=== PATIENT | female | born 1965 | race Caucasian/White ===

== ENCOUNTER 2021-06-05 09:35 | Emergency (ER) | payer BC ==
[~2021-06-05 09:35] MED LIST: ALENDRONATE SOD70 MG PO; ALL DAY ALLERGY10 MG PO; ASPIR 8181 MG PO; B12 PO; BUTRANS1 EAC1 TD; CETIRIZINE HCL10 MG PO; COL-RITE250 MG PO; CYCLOBENZAPRINE10 MG PO; CYMBALTA60 MG PO; DULOXETINE HCL60 MG PO; ECOTRIN81 MG PO; ESOMEPRAZOLE MA40 MG PO; FISH OIL + D31 EACH PO; FISH OIL 1,0001 EAC1 PO; FLONASE 0.05% N16 GM; FUROSEMIDE20 MG PO; IBUPROFEN800 MG PO; ISOSORBIDE MONO60 MG PO; LEVSIN TAB 00.125 MG SL; LEVSIN0.125 MG PO; LISINOPRIL10 MG PO; LOPRESSOR 25 MG25 MG PO; LORTAB 7.5-3251 EACH PO; MIRALAX17 GM PO; NAPROSYN500 MG PO; NEXIUM40 MG PO; NITROGLYCERIN0.4 MG SL; NORCO 7.5-3251 EACH PO; PERCOCET 7.5-31 EACH PO; POTASSIUM CHLO20 ME1 PO; POTASSIUM PO; ZOFRAN4 MG PO
[2021-06-05] MEDS ORDERED: NAPROSYN EC 50500 MG PO (10:49)
== END 2021-06-05 11:02 | disposition home or self-care (01) ==
LOC: ER1 09:35
DX: M25.431 Effusion, right wrist (principal); M25.531 Pain in right wrist; I11.9 Hypertensive heart disease without heart failure; K21.9 Gastro-esophageal reflux disease without esophagitis; Z90.710 Acquired absence of both cervix and uterus
CPT/HCPCS: 29125; 73110; 73130; 99283

== ENCOUNTER 2021-06-10 15:15 | Emergency (ER) | payer BC ==
[~2021-06-10 15:15] MED LIST changes: +NAPROSYN EC 50500 MG PO
[2021-06-10] MEDS ORDERED: CEPHALEXIN500 M1 PO (16:13)
[2021-06-10] MEDS ORDERED: BACTRIM 400-801 EACH PO (16:13)
== END 2021-06-10 16:38 | disposition home or self-care (01) ==
LOC: ER1 15:15
DX: L02.415 Cutaneous abscess of right lower limb (principal); I10 Essential (primary) hypertension; I25.10 Atherosclerotic heart disease of native coronary artery without angina pectoris; I48.91 Unspecified atrial fibrillation; Z90.710 Acquired absence of both cervix and uterus
CPT/HCPCS: 10060; 99283

== ENCOUNTER 2021-06-12 16:16 | Emergency (ER) | payer BC ==
[~2021-06-12 16:16] MED LIST changes: +BACTRIM 400-801 EACH PO; +CEPHALEXIN500 M1 PO
[2021-06-12 18:21] LABS: HEMOGLOBIN 12.7 gm/dl (12.3-15.3); RED BLOOD COUNT 4.37 M/UL (4.00-5.10); WHITE BLOOD COUNT 7.4 K/UL (4.5-11.0)
[2021-06-12 18:48] LABS: BUN/CREATININE RATIO 19 (0-10)
[2021-06-12] MEDS ORDERED: BACITRACIN-POLY15 G1 TP (21:11)
== END 2021-06-12 21:18 | disposition home or self-care (01) ==
LOC: ER1 16:16
PROVIDERS: Physician Assistant Medical
DX: L03.113 Cellulitis of right upper limb (principal); I11.9 Hypertensive heart disease without heart failure; K21.9 Gastro-esophageal reflux disease without esophagitis
CPT/HCPCS: 80053; 85025; 99283